=== PATIENT | female | born 1990 | race Two or more races ===

== ENCOUNTER 2021-12-24 17:26 | Emergency (ER) | payer OTHER ==
[~2021-12-24] VITALS: Ht 162.6 cm; Wt 51.1 kg
[2021-12-24 17:41] VITALS: BP 122/77
[2021-12-24 19:10] LABS: Urine Bacteria FEW /hpf (None Seen); Urine Blood Negative /uL (Negative); Urine Mucus FEW (None Seen); Urine Specific Gravity 1.023 (1.001-1.035); Urine WBC 3 /hpf (0 - 5)
[2021-12-24] MEDS ORDERED: NITR-87 PO (23:41)
[2021-12-24] MEDS ORDERED: DOXY-338 PO (23:41)
[2021-12-24] MEDS ORDERED: cefTRIAXone SOD 500 MG VL IM ONE (23:45)
== END 2021-12-24 23:51 | disposition home or self-care (01) ==
LOC: ER 17:26
DX: N39.0 Urinary tract infection, site not specified (principal); A64 Unspecified sexually transmitted disease; Z79.899 Other long term (current) drug therapy
CPT/HCPCS: 81001; 96372; 99283; J0696